=== PATIENT | female | born 1975 | race African-American/Black ===

== ENCOUNTER 2025-05-17 14:55 | Outpatient (AMB) | payer OTHER, SELFPAY ==
--- NOTE | 2025-05-17 15:03 | A.OFFPC_ITS ---
Vital Signs 05/17/25 15:04 Height 5 ft 6.5 in Weight 194 lb 4 oz BMI 30.9 BP 110/74 Blood Pressure Location Lt brachial Position Sitting Respiration 16 Pulse 77 Pulse Source Pulse Oximeter Temp 96.9 F Temp Source Temporal Artery Scan Pulse Oximetry (%) 97 Oxygen Delivery Method Room Air Intake Visit Reasons: Routine, reestablish care Philosophy Professor Required: No Accompanied by: Self / Same As Patient Allergies MATTIE Inhibitors Adverse Reaction (Severe, Verified 05/17/25 15:03) Angioedema Medication List - Last Reconciled 05/17/25 by Lilly Guzman MD amlodipine 5 mg PO DAILY azelastine 0.05% 1 drp ophthalmic (eye) BID PRN cetirizine 10 mg PO DAILY ibuprofen 600 mg PO Q8H lactulose 15 mL PO DAILY lidocaine-prilocaine 2.5-2.5 % topical ONCE tirzepatide (weight loss) (Zepbound) 7.5 mg subcut QWEEK Tobacco use date assessed: 05/17/25 Dental Screening Dental Screen Date: 05/17/25 Did you have a dental visit in the last 12 months?: Yes Did you have a dental problem in the last 6 months where you did not have access to dental care?: No Was dental information given to patient?: Patient has dentist HPI HPI Comments History of Present Illness Details The patient is a 50 year old female presenting to [facility] and for evaluation of worsening left hip and leg pain. Left Hip Pain with Radiculopathy and Bursitis: The patient reports a history of tingling sensations in the feet, which the patient initially associated with neuropathy from prior cancer medication. This has progressed to more severe pain, which has been worsening since around November. The pain originates in the left hip and radiates down the side of the leg to the bottom of the foot. The pain is worse at night, especially when lying on the affected side, which disrupts sleep. It is also exacerbated by prolonged sitting, after which the patient experiences numbness and a sensation of the foot falling asleep. The patient reports using ibuprofen, which provides only minimal relief. Past workup included an X-ray of the hip, but no lower back imaging. Right Carpal Tunnel Syndrome: The patient has a known history of a pinched nerve and carpal tunnel syndrome in the right wrist and has been trying to prolong surgery. 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 The patient reports using a brace intermittently. 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 Obesity: The patient was previously on Wegovy but plateaued and switched to Zepbound 7.5 mg about a month ago for weight management. The patient experiences nausea the day after the injection, which is transient, and has had infrequent episodes of vomiting since starting the 7.5 mg dose. The patient's current weight is 194 lbs, which is down from a recorded weight of 207 lbs (94 kg) in March. The patient???s activity is limited by the ongoing hip and leg pain. Complication of Tooth Extraction: The patient underwent a simple tooth extraction in November, which was complicated by the pulling of a sinus cavity, creating an oroantral communication. Following the procedure, the patient developed a sinus infection, experiencing symptoms of liquid passing from the mouth into the nose, a foul odor, and persistent right- sided nasal stuffiness. The patient saw an ENT specialist and was treated with several courses of antibiotics, which resolved the previously yellowish discharge. An oral surgeon performed X-rays, which showed a blockage on the right side, and discussed complex surgical repair options, including a bone graft and tissue flap. 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 - Ergonomics: The patient has an ergonom ic setup at home but not at work. 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 - Exercise: Activity is currently limite d by hip and leg pain. [facility]LY [facility] Medical History (Updated 05/17/25 @ 18:07 by Lilly Guzman MD) Obesity (BMI 30.0-34.9) Left hip pain Exposure to STD Lumbar radiculopathy Colon cancer Pulmonary embolism Primary hypertension Surgical History (Updated 05/17/25 @ 14:52 by Lilly Guzman MD) H/O colectomy History of colonoscopy (~11/24/19) Family History (Updated 05/17/25 @ 14:53 by Lilly Guzman MD) Other Colon cancer Diabetes mellitus Hyperlipidemia, unspecified Social History Housing: House Patient Tobacco Use Status: Never used Tobacco e-Cigarette/Vaping Use: Never Used service: No Current occupational status: employed 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 How often do you have a drink containing alcohol?: Never 3. How often do you have six or more drinks on one occasion?: Never Total Score: 0 Review of Systems Narrative Review of Systems - Constitutional: Reports extreme fatigue, especially around lunchtime, due to poor sleep from pain. - Respiratory: Reports persistent right-sided nasal stuffiness; the patient's CPAP helps to open the passage. - Cardiovascular: Denies chest pain. - GI: Reports nausea and infrequent vomiting after Zepbound injections. - Neurological: Reports tingling sensations in feet, feet falling asleep, and numbness in both legs with prolonged sitting. - Musculoskeletal: Reports severe, radiating pain in the left hip and leg, which is worse at night. 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 Physical exam (Primary Care) Vital Signs: Last Vital Signs Temp 96.9 F 05/17/25 15:04 Pulse 77 05/17/25 15:04 Resp 16 05/17/25 15:04 BP 110/74 05/17/25 15:04 Pulse Ox 97 05/17/25 15:04 Oxygen Delivery Method Room Air 05/17/25 15:04 BMI result Body Mass Index 30.9 Tobacco/Smoking Status: Tobacco use Status Tobacco use date assessed 05/17/25 05/17/25 15:10 Patient Tobacco Use Status Never used Tobacco 05/17/25 15:10 e-Cigarette/Vaping Use Never Used 05/17/25 15:10 Narrative Physical Exam - Lungs: Clear to auscultation bilaterally. - Cardiovascular: Soft heart murmur auscultated, normal s1, s2 - Back: lumbar paraspinal muscle tenderness. - Musculoskeletal: Pain elicited with rotation of the left hip. - Musculoskeletal: Tenderness to palpation over left hip. - Musculoskeletal: No pain with rotation of the right hip. - Musculoskeletal: The patient reports feeling tightness with resisted knee extension. Coding Level of Care Code Est Pt Level 4 (33769) Complex visit Add On G2211 Diagnoses Primary hypertension I10 Left hip pain M25.552 Obesity (BMI 30.0-34.9) E66.811 Assessment & Plan Assessment & Plan (1) Primary hypertension: Code(s): I10 - Essential (primary) hypertension Category: Medical (2) Left hip pain: Code(s): M25.552 - Pain in left hip Category: Medical (3) Obesity (BMI 30.0-34.9): Code(s): E66.811 - Obesity, class 1 Category: Medical Plan Assessment and Plan 1. Left hip pain with radiculopathy and bursitis - Differential for patient's pain include sciatica vs spinal stenosis, localized tenderness suggests concomitant trochanteric bursitis. - The plan is to obtain a lumbar spine X-ray to start. - For pain management, a trial of Tylenol Arthritis 2 tabs at night, a lidocaine patch applied to the hip overnight for 12 hours, and ibuprofen 600 mg with dinner for one week is recommended. - The patient was advised to engage in low-impact water-based exercises and avoid activities like cycling. - A referral to physiatry may be considered depending on X-ray findings. 2. Right carpal tunnel syndrome - Symptoms are worsening, likely exacerbated by a non-ergonomic work environment. - The plan is for the patient to request an ergonomic station evaluation from their employer's occupational health department. - Recommended hand strengthening exercises to prevent muscle deconditioning. 3. Obesity - The patient is responding well to Zepbound with documented weight loss but is experiencing some nausea. - The plan is to continue the current 7.5 mg dose for another month to improve tolerance before considering an increase to 10 mg. - The patient will follow up on symptoms via message or phone call. 4. Complication of tooth extraction (Oroantral fistula) - The patient has a significant complication from a prior dental procedure leading to a chronic sinus issue. - The plan is to advise the patient to formally request all related dental, ENT, and oral surgery records for continuity of care, for a potential second opinion 5. Health Maintenance - A full panel of fasting labs, including CBC, CMP, lipids, and urine studies, has been ordered to be done after the holidays. - At patient's request, screening for HIV, hepatitis, and syphilis (RPR) was also ordered. - The patient is due for a mammogram and was advised to schedule one. - A follow-up physical exam is planned for three months. Plan - An X-ray of the lumbar spine has been ordered. - Prescribed Tylenol Arthritis, 2 tablets at bedtime, and lidocaine patch, to be applied to the left hip for 12 hours overnight. - Recommended a one-week course of ibuprofen 600 mg taken with dinner. - Advised the patient to request an ergonomic evaluation at work for the right carpal tunnel syndrome. - Sent a refill for Zepbound 7.5 mg; will continue at this dose for now and reassess for a potential increase to 10 mg based on tolerance of nausea. - Advised the patient to schedule a mammogram as it is due. - Recommended low-impact, pool-based exercises and avoidance of cycling until the leg pain is evaluated. - Plan to follow up in 3 months for a full physical. Discussion Notes We discussed a multi-modal pain management plan including a lidocaine patch, Tylenol Arthritis, and a short course of ibuprofen, and I ordered a lumbar spine X-ray as the initial diagnostic step. Patient Instructions - Please go for an X-ray of your lower back today - For your left hip pain, please try the following for one week: take 600 mg of ibuprofen with dinner, take two Tylenol Arthritis pills at bedtime, and apply one lidocaine patch to the painful area on your hip overnight (for 12 hours). - Your prescriptions for Tylenol Arthritis and the lidocaine patch have been sent to your pharmacy. - Avoid high-impact exercises like cycling for now; try gentle, water-based exercises in a heated pool if possible. - Please contact your employer about having an ergonomic assessment of your workstation to help with your wrist pain. - Continue taking your Zepbound 7.5 mg injection; a refill has been sent. Please call or message us through the patient portal in a couple of weeks to let us know how your nausea is, and we can then discuss increasing the dose. Orders: Orders XR lumbar spine 2-3V Today M54.16 - Radiculopathy, lumbar region Complete Blood Count Auto Diff Today C18.9 - Malignant neoplasm of colon, unspecified, I10 - Essential (primary) hypertension, I26.99 - Other pulmonary embolism without acute cor pulmonale Comprehensive Met. Panel Today C18.9 - Malignant neoplasm of colon, unspecified, I10 - Essential (primary) hypertension, I26.99 - Other pulmonary embolism without acute cor pulmonale HIV Ab/Ag Today C18.9 - Malignant neoplasm of colon, unspecified, I10 - Essential (primary) hypertension, I26.99 - Other pulmonary embolism without acute cor pulmonale Hemoglobin A1c Today C18.9 - Malignant neoplasm of colon, unspecified, I10 - Essential (primary) hypertension, I26.99 - Other pulmonary embolism without acute cor pulmonale Hepatitis A,B,C Profile Today C18.9 - Malignant neoplasm of colon, unspecified, I10 - Essential (primary) hypertension, I26.99 - Other pulmonary embolism without acute cor pulmonale Lipid Panel Today C18.9 - Malignant neoplasm of colon, unspecified, I10 - Essential (primary) hypertension, I26.99 - Other pulmonary embolism without acu te cor pulmonale TSH reflex Free T4 Today C18.9 - Malignant neoplasm of colon, unspecified, I10 - Essential (primary) hypertension, I26.99 - Other pulmonary embolism without acute cor pulmonale Microalbumin, Random (w Creat) Today I10 - Essential (primary) hypertension RPR Monitor reflex titer Today C18.9 - Malignant neoplasm of colon, unspecified, I10 - Essential (primary) hypertension, I26.99 - Other pulmonary embolism without acute cor pulmonale, Z20.2 - Contact with and (suspected) exposure to infections with a predominantly sexual mode of transmission CT NG by PCR Urine Today C18.9 - Malignant neoplasm of colon, unspecified, I10 - Essential (primary) hypertension, I26.99 - Other pulmonary embolism without acute cor pulmonale, Z20.2 - Contact with and (suspected) exposure to infections with a predominantly sexual mode of transmission Medications: New acetaminophen ER (Arthritis Pain Relief (acetaminophen) ER) 1,300 mg (2 x 650 mg) PO BID 60 tabs 2RF HIP PAIN lidocaine 5% (Lidoderm) leave on most painful area for up to 12 hrs 1 patch topical DAILY 30 ea 0RF HIP PAIN tirzepatide (weight loss) (Zepbound) 7.5 mg (0.5 mL) subcut QWEEK 2 mL 1RF
[2025-05-17 15:04] VITALS: BP 110/74; PULSE 77; RESP 16; TEMP 36.1; O2SAT 97; BMI 30.9
--- OUTSIDE RECORDS SUMMARY | 2025-05-17 19:43 | XMS_ITS | Data Portability ---
Author Organization [place] - [facility], Allergy Address [address] [facility] [address] [place] [address] Care Team Providers Care Web Development Director Name Role Phone KYRA WILSON Referring Provider [phone] Assessment Encounter Date Assessment Date Assessment LastModified by Organization Details LastModified Time 07/14/2024 07/14/2024 Patient with history and symptoms consistent with oroantral communication and odontogenic right maxillary sinusitis s/p right maxillary dental extraction. Images and report of sinus radiograph reviewed today; opacification of right maxillary sinus and anterior ethmoid air cells on the right. Area of dental extraction is severely inflamed, limiting the view of a potential fistula. Nasal endoscopy reveals copious purulent mucus in the right middle meatus. Recommend course of Augmentin and distilled saline irrigation, and return for sinus CT. Recommend calling oral surgeon for urgent appointment to evaluate the inflammation of the post-operative site. [email or web address] Not available 07/14/2024 14:33:17 Plan of Treatment Reminders Order Date Submit Date Provider Last Modified By Organization Details Last Modified Time Details Appointments None recorded. Lab None recorded. Referral None recorded. Procedures None recorded. Surgeries None recorded. Imaging None recorded. Medication Orders amoxicillin 875 mg-potassiu m clavulanate 125 mg tablet 2024 025 [facility] #[id number], [address] [place], [address], 14:16:32 Patient TargetsNo targets recorded. Patient InstructionsNo instructions recorded. Reason for Referral None Reported. Results Created Date Observation Date Name Description Value Unit Range Abnormal Flag Note LastModifiedBy Organization Detail LastModifiedTime 07/14/19 25 06/05/2024 XR, sinus es, paran juancarlos, 3 or more view No observ ation record ed. [email or web address] Not Available 06/25 14:42:21 Result Notes None recorded. Problems Name Problem SNOMED Code Status Onset Date Resolution Date Notes Provider Name and Address Organization Details Recorded Time Acute maxillary sinusitis 18246481 Active 2024 Neris armas [facility] 5 14:15:30 Oroantral communication 5216156070 Active 2024 Neris armas [facility] 5 14:28:51 Problem Notes None recorded. Procedures Surgical History Date Name Laterality Status Provider Name and Address Organization Details Recorded Time Nasal Endoscopy completed Neris Flores [facility] 07/14/2024 14:33:45 Imaging Results None recorded. Procedure Notes None recorded. Medical Equipment None Reported. Allergies No known drug allergies Medications Name Sig Start Date Stop Date Status Note LastModified by Organization Details LastModified Time cetirizine 10 mg tablet TAKE 1 TABLET BY MOUTH EVERY DAY active Not Available Not Available No t Available metronidazol e 500 mg tablet TAKE 1 TABLET BY MOUTH THREE TIMES A DAY FOR 7 DAYS WITH FOOD active Not Available Not Available No t Available amlodipine 5 mg tablet TAKE 1 TABLET BY MOUTH EVERY DAY active Not Available Not Available No t Available lidocaine-pr ilocaine 2.5 %-2.5 % topical cream APPLY TOPICALLY ONCE active Not Available Not Available No t Available acetaminophe n ER 650 mg tablet,exten ded release TAKE 2 TABLETS BY MOUTH 3 TIMES A DAY NEEDED FOR PAIN , MODERATE active Not Available Not Available No t Available norethindron e acetate 5 mg tablet TAKE 2 TABLETS BY MOUTH TWICE A DAY active Not Available Not Available No t Available ibuprofen 600 mg tablet TAKE 1 TABLET BY MOUTH EVERY 6 HOURS NEEDED FOR PAIN WITH FOOD active Not Available Not Available No t Available amoxicillin 875 mg-potassium clavulanate 125 mg tablet TAKE 1 TABLET TWICE A DAY BY ORAL ROUTE WITH MEAL(S) FOR 14 DAYS. active Not Available Not Available No t Available Wegovy 1.7 mg/0.75 mL subcutaneous pen injector INJECT 1 PEN (1.7 MG) INTO THE SKIN ONCE WEEKLY ON THE SAME DAY. ROTATE INJECTION SITES active Not Available Not Available No t Available Wegovy 1 mg/0.5 mL subcutaneous pen injector 1 MG SUBCUTANEOU S INJECTION EVERY WEEK,X4 WEEK(S),INS TR:IN THE ABDOMEN, THIGH, OR UPPER ARM active Not Available Not Available No t Available Wegovy 0.25 mg/0.5 mL subcutaneous pen injector INJECT 0.25 MG SUBCUTANEOU SLY ONCE WEEKLY FOR 4 WEEKS active Not Available Not Available No t Available Wegovy 0.5 mg/0.5 mL subcutaneous pen injector INJECT 0.5 MG SUBCUTANEOU S INJECTION EVERY WEEK,X4 WEEK(S) IN THE ABDOMEN, THIGH, OR UPPER ARM active Not Available Not Available No t Available Vitals Date Recorded Body weight Body mass index (BMI) Body height Provider Name and Address Organization Details Last Updated DateTime 07/14/2024 56115.47 g 32.3 kg/m2 167.64 cm Guillermina Devries [place] - [facility] 07/14/2024 14:05:26 Social History None recorded. Functional Status None recorded. Mental Status None recorded. Family History Nothing Reported. Medical History Condition Response Cancer Y Gynecological HistoryNo gynecological history recorded. Obstetrics History GPAL:G 0 P 0 0 0 0 Past Encounters Encounter ID Performer Location Encounter Start Date Encounter Closed Date Diagnosis/Indication Diagnosis SNOMED-CT Code Diagnosis ICD10 Code Diagnosis IMO Codes Diagnosis Note [id number] NERIS FLORES PA-C [facility] [address] [address] 07/14/2024 13:38:34 07/14/2024 14:24:14 Acute maxillary sinusitis 74204504 J01.00 Oroantral communication 2659849172 J32.0 Health Concerns Section Related Observation LastModified by Organization Detai ls LastModified Time None Recorded Concern Status LastModified by Organization Details LastModified Time None Recorded Advance Directives Directive None Recorded Payers Insurance Date Sequence Insurance Name Policy Number Policy Kelley Covered Member ID Kelley Member ID Guarantor Name 09/14/2024 1 JENIFER [id number] Kathie Caal [id number] 1 [id number] Kathie Caal Notes Date Note Type Note Provider Name and Address Organization Details Recorded Time 07/14/2024 text/html ROS as noted in the HPI 49 year old female presents for evaluation of the sinuses. Reports a dental extraction of a right maxillary molar about 2 month ago. Since then she has had pressure on the right side of the face, foul odor in the nose and mouth, and excess yellow mucus. The gums where the tooth was extracted are sometimes inflamed and she has to use a teabag. When she uses mouthwash sometimes it comes out of her nose. Was on a course of metronidazole that changed the mucus to a clear color but the yellow discoloration came back almost immediately after stopping it. She has no prior history of chronic nor recurrent sinusitis and has never had surgery on the nose or face. Neris armas [place] - [facility] 07/14/2024 14:33:50 OBGyn Episode No OBEpisode recorded.
--- OUTSIDE RECORDS SUMMARY | 2025-05-17 19:43 | XMS_ITS | Clinical Summary ---
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 Name Role Phone Unavailable Primary Care Provider Unavailabl e Social History Tobacco Use Types Packs/Day Years Used Date Smoking Tobacco: Never Assessed Comments Unknown Sex and Gender Information Value Date Recorded Sex Assigned at Not on file Legal Sex Female 7:27 AM EST Gender Identity Not on file Sexual Orientation Not on file Plan of Treatment Health Maintenance Due Date Last Done Comments Breast Cancer Screening 1977 Cervical Cancer Screening: P ap Smear 1998 Hepatitis B Vaccines (3 of 3 - 19+ 3-dose series) 07/22/2019 02/24/2019, 01/19/2019 Depression Screening 06/24/2024 COVID-19 Vaccine (3 - 2024-2 6 season) 2025 03/13/2022, 02/20/2022 Influenza Vaccine (#1) 2025 DTaP,Tdap,and Td Vaccines (3 - Td or Tdap) 05/09/2032 05/09/2022, 03/20/2012 RSV Immunization Adult Patients (1 - 1-dose 75+ series) 2052 Pneumococcal Vaccine: Pediatrics (0 to 5 Years) and At-Risk Patients (6 to 49 Years) Aged Out 05/24/2020, 03/18/2020 No longer eligible based on patient's age to complete this topic Hepatitis A Vaccines Aged Out 05/23/2024 No long er eligible based on patient's age to complete this topic HIB Vaccines Aged Out No longer eligi ble based on patient's age to complete this topic HPV Vaccines Aged Out No longer eligi ble based on patient's age to complete this topic IPV Vaccines Aged Out No longer eligi ble based on patient's age to complete this topic MMR Vaccines Aged Out No longer eligi ble based on patient's age to complete this topic Meningococcal ACWY Vaccine Aged Out N o longer eligible based on patient's age to complete this topic Meningococcal B Vaccine Aged Out No l onger eligible based on patient's age to complete this topic RSV Immunization Patients Under 20 months Aged Out No longer eligible b ased on patient's age to complete this topic Varicella Vaccines Aged Out No longer eligible based on patient's age to complete this topic
== END 2025-05-17 16:02 | disposition home or self-care (01) ==
LOC: HO.HMCHD 14:55
PROVIDERS: PCP Internal Medicine; Visit Provider Internal Medicine
DX: I10 Essential (primary) hypertension (principal); M25.552 Pain in left hip; E66.811 Obesity, class 1

== ENCOUNTER 2025-05-17 14:55 | Outpatient (REF) | payer OTHER, SELFPAY ==
--- NOTE | ~2025-05-17 | XR_ITS ---
EXAMINATION: XR LUMBOSACRAL SPINE CLINICAL INFORMATION: M54.16 - Radiculopathy, lumbar region COMPARISON: None available. TECHNIQUE: Three views of the lumbosacral spine. FINDINGS: There are 5 nonrib-bearing lumbar segments with vestigial ribs at L1. There is 19 degrees dextroscoliosis at the thoracolumbar junction with apex at L1-2. There is a mild rotational component. T12-L1 and L1-2 demonstrate small endplate osteophytes with minimal disc space narrowing. Vertebral body height and alignment and disc spaces are preserved otherwise. XR/XR lumbar spine 2-3V IMPRESSION: Mild dextroscoliosis. Mild degenerative disc disease T12-L1 and L1-2. Electronically signed by: Rohan Montejo MD 05/17/2025 05:47 PM EST
== END 2025-05-17 14:56 | disposition home or self-care (01) ==
LOC: HO.XRAY 14:55
PROVIDERS: PCP Internal Medicine; Visit Provider Internal Medicine
DX: I10 Essential (primary) hypertension (principal); M25.552 Pain in left hip; E66.811 Obesity, class 1; Z68.30 Body mass index [BMI] 30.0-30.9, adult; G56.01 Carpal tunnel syndrome, right upper limb; M54.16 Radiculopathy, lumbar region
CPT/HCPCS: 72100

== ENCOUNTER → 2025-05-17 16:47 | Outpatient (BNV) | payer OTHER, SELFPAY | PROVIDERS: PCP Internal Medicine; Visit Provider Radiology Diagnostic Radiology | DX: M54.16 Radiculopathy, lumbar region (principal) | CPT/HCPCS: 72100 ==

== ENCOUNTER 2025-06-09 15:11 | Outpatient (AMB) | payer OTHER, SELFPAY ==
[2025-06-09 15:22] VITALS: BMI 30.2
--- NOTE | 2025-06-09 15:22 | A.PHYSOV_ITS ---
Vital Signs 06/09/25 15:22 Height 5 ft 6.5 in Weight 190 lb BMI 30.2 Intake Visit Reasons: [facility] [place]- left hip pain Intake Note: Patient is a 50 year old female here for new patient office visit for right hip pain. 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 She has had left-sided hip pain for approximately one year, which she describes as an all-day pain located in the buttock area that radiates down the leg with associated numbness and tingling. She denies any pain on the right side. The back pain is a more recent development and is located in the central lower back. She describes this as a striking pain that can cause her to get stuck when bending over. There was no inciting injury for either pain. The pain is now severe enough that she cannot sleep on it. The patient has not undergone physical therapy or child care worker for these sy mptoms. She has a past medical history of cancer, for which she received radiation, and fibroid surgery. She reports a history of claustrophobia, requiring medication like Ativan for prior MRI scans. I reviewed the referring provider's no prior to consultation. Pain Description - Onset: The patient reports hip pain for about a year and newer onset back pain, with no specific injury. - Location: The patient feels pain in her left hip, specifically in the posterior area, as well as in the center of her lower back. - Radiation: The pain radiates down her left leg. - Character: The hip pain is described as an all-day pain, while the back pain is a striking pain. - Associated Symptoms: The patient experiences numbness and tingling in her left leg. - Severity: Pain is currently a 6/10 on a 0-10 scale with Tylenol and ibuprofen, and would be a 10/10 without medication. - Aggravating factors: Bending over can cause the patient to get stuck. - Interference with function: The pain affects her ability to sleep. [facility] Medical History (Updated 06/09/25 @ 17:56 by VANDANA Conner) Carpal tunnel syndrome Obesity (BMI 30.0-34.9) Left hip pain Exposure to STD Lumbar radiculopathy Colon cancer Pulmonary embolism Primary hypertension Surgical History H/O colectomy History of colonoscopy (~11/24/19) Family History (Updated 05/17/25 @ 14:53 by Lilly Guzman MD) Other Colon cancer Diabetes mellitus Hyperlipidemia, unspecified Social History (Updated 06/09/25 @ 15:25 by Emani Duran MA) Housing: House Alcohol intake: current Alcohol intake frequency: holidays/special occasions only Patient Tobacco Use Status: Never used Tobacco e-Cigarette/Vaping Use: Never Used service: No Current occupational status: employed 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 - Neurological: Reports numbness and tingling in the left leg. - Psychiatric: Reports claustrophobia with MRIs. - Constitutional: Reports being extremely tired due to poor sleep. Physical Exam Exam Exam: Physical Exam - Back: Patient localizes pain to the central lower back. - No tenderness to palpation. - Lumbar extension is non-painful. - Forward flexion elicits low back pain without radiation into the leg. - Lower Extremities: Sensation is intact and symmetric to light touch. - Motor strength is grossly intact with foot flexion and extension. - Lifting the left thigh elicits hip pain. - Lifting the right thigh is non-painful. - On supine exam, flexion and external rotation of the left hip are limited by pain in the posterior hip. - There is no groin pain. Vital Signs: BMI result Body Mass Index 30.2 Assessment & Plan Assessment & Plan (1) Lumbar spondylosis: Code(s): M47.816 - Spondylosis without myelopathy or radiculopathy, lumbar region Category: Medical Plan Pain Management - Affect: The patient reports she cannot sleep on her left side due to pain and is extremely tired throughout the day. - Analgesia: The patient takes Tylenol and ibuprofen, which lowers her pain from a 10/10 to a 6/10, but feels it is not working well enough. - Activities of Daily Living: The pain causes her to get stuck when bending over and interferes with sleep. Plan Patient was informed and verbally consented to the use of an ambient scribe for clinic note documentation during this visit. 1. Sciatica, Left Side The patient's symptoms of posterior hip and buttock pain radiating down the left leg with numbness and tingling, along with a physical exam notable for absence of groin pain, suggest sciatica from a pinched nerve rather than true hip joint pathology. An MRI of the lumbar spine will be ordered to assess for disc or nerve pathology per patient request, as the prior X-ray is non-diagnostic for soft tissue issues. Given insurance requirements, physical therapy will be ordered concurrently to facilitate MRI approval and provide therapeutic benefit. The patient declined injections at this time. 2. Neuropathic Pain And Claustrophobia For the patient's neuropathic pain, which is poorly controlled on Tylenol and ibuprofen and is now disrupting sleep, Gabapentin will be prescribed, starting at 100 mg at night. The patient has been instructed that she can increase the dose as needed for efficacy, with the understanding that it can cause sleepiness. To manage her claustrophobia, Ativan will be prescribed for her to take before the MRI. Discussion Notes I explained to the patient that her symptoms of pain radiating down the leg with numbness and tingling, combined with the lack of groin pain, are more indicative of sciatica or a pinched nerve in her back rather than an issue with the hip joint itself. I advised that an MRI is necessary to visualize the discs and nerves, as the previous X-ray is insufficient. I detailed the insurance approval process, explaining that physical therapy is typically required before an MRI is approved. We discussed the options, and the patient agreed to order both the MRI and a referral for physical therapy simulta neously to avoid potential delays in care should the MRI initially be denied. We discussed medication options, and I recommended Gabapentin for her nerve pain, which is not adequately controlled with her current regimen. I will prescribe a low starting dose to be taken at night to aid with sleep and minimize daytime sedation, with instructions to titrate as needed. I also addressed her claustrophobia by agreeing to prescribe Ativan for her to take before the MRI. The patient verbalized that she does not want injections at this time. Patient Instructions - We believe your pain is coming from a pinched nerve in your back, a condition called sciatica. - An MRI of your lower back will be ordered. - A prescription for Ativan will be sent to your pharmacy to take before the MRI for your claustrophobia. - A referral for physical therapy will be ordered. - A prescription for Gabapentin will be sent to your pharmacy for nerve pain. - Start by taking 100 mg of Gabapentin at night, as it may cause drowsiness. - You may increase the dose if needed and can take up to 300 mg per dose. - You may continue to use Tylenol and ibuprofen for pain. Orders: Orders PT Evaluation and Treatment Today M47.816 - Spondylosis without myelopathy or radiculopathy, lumbar region MR lumbar spine wo con Today M51.16 - Intervertebral disc disorders with radiculopathy, lumbar region Medications: New gabapentin 100 mg PO BEDTIME 30 caps 0RF M47.816 - Spondylosis without myelopathy or radiculopathy, lumbar region, M54.16 - Radiculopathy, lumbar region lorazepam (Ativan) 1 mg PO DAILY PRN 1 tab 0RF anxiety 1 day F40.240 - Claustrophobia Coding Level of Care Code Tele New Pt Level 4 (27404) Diagnoses Lumbar spondylosis M47.816
--- OUTSIDE RECORDS SUMMARY | 2025-06-09 20:13 | XMS_ITS | Data Portability ---
Author Organization [place] - [facility], Allergy Address [address] [place] [address] Care Team Providers Care Casing Fluid Tender Name Role Phone KYRA WILSON Referring Provider [phone] Assessment Encounter Date Assessment Date Assessment LastModified [...] m clavulanate 125 mg tablet 2024 025 [facility] #[id number], [address] [place], [address], 14:16:32 Patient TargetsNo targets recorded. Patient InstructionsNo instructions recorded. Reason for Referral None Reported. Results Created Date Observation Date Name Description Value Unit Range Abnormal Flag Note LastModifiedBy Organization Detail LastModifiedTime 07/14/19 25 06/05/2024 XR, sinus es, paran juancarlos, 3 or more view No observ ation record ed. [email or web address] Not Available 06/25 14:42:21 Result Notes None recorded. Problems Name Problem SNOMED Code Status Onset Date Resolution Date Notes Provider Name and Address Organization Details Recorded Time Acute maxillary sinusitis 53382015 Active 2024 Neris armas [facility] 5 14:15:30 [employer] 1832637270 Active 2024 Neris armas [facility] 5 14:28:51 Problem Notes None recorded. Procedures Surgical History Date Name Laterality Status Provider Name and Address Organization Details Recorded Time Nasal Endoscopy completed Neris Flores [facility] 07/14/2024 14:33:45 Imaging Results None recorded. [...] Address Organization Details Last Updated DateTime 07/14/2024 91500.47 g 32.3 kg/m2 167.64 cm Guillermina Devries [place] - [facility] 07/14/2024 14:05:26 Social History None recorded. Functional Status None recorded. Mental Status None recorded. Family History Nothing Reported. Medical History Condition Response Cancer Y Gynecological HistoryNo gynecological history recorded. Obstetrics History GPAL:G 0 P 0 0 0 0 Past Encounters Encounter ID Performer Location Encounter Start Date Encounter Closed Date Diagnosis/Indication Diagnosis SNOMED-CT Code Diagnosis ICD10 Code Diagnosis IMO Codes Diagnosis Note [id number] NERIS FLORES PA-C [facility] [address] [address] 07/14/2024 13:38:34 07/14/2024 14:24:14 Acute maxillary sinusitis 52603242 J01.00 [employer] communication 7179223225 J32.0 Health Concerns Section Related Observation LastModified by Organization Detai ls LastModified Time None Recorded Concern Status LastModified by Organization Details LastModified Time None Recorded Advance Directives Directive None Recorded Payers Insurance Date Sequence Insurance Name Policy Number Policy Kelley Covered Member ID Kelley Member ID Guarantor Name 09/14/2024 1 JENIFER [id number] Kathie Caal [id number] 1 [id number] Kathie Caal Notes Date Note Type Note [...] armas [place] - [facility] 07/14/2024 14:33:50 OBGyn Episode No OBEpisode recorded.
--- OUTSIDE RECORDS SUMMARY | 2025-06-09 20:13 | XMS_ITS | Clinical Summary ---
Author Organization [employer] [facility] ity Address [address] [place] [address] Care Team Providers Care Director Of Reimbursement Name Role Phone Unavailable Primary Care Provider [...]
== END 2025-06-09 15:52 | disposition home or self-care (01) ==
LOC: HO.HPHYS 15:11
PROVIDERS: PCP Internal Medicine; Visit Provider Physician Assistant
DX: M47.816 Spondylosis without myelopathy or radiculopathy, lumbar region (principal)
CPT/HCPCS: 99204